=== PATIENT | male | born 1945 | race Caucasian/White ===

== ENCOUNTER 2018-08-23 15:58 | Emergency (ER) | payer MEDICARE, BC ==
[2018-08-23 16:07] VITALS: BP 160/101
[2018-08-23] MEDS ORDERED: Ibuprofen TAB* 600 MG PO ONE (16:45)
--- NOTE | 2018-08-23 16:56 | UC ---
Abdominal Pain Female HPI - HPI Summary HPI Summary: 73 yo M, no known pmh, c/o dull abdominal pain in the lower abdomen for 2 days. Began after eating at a restaurant. It's been constant since onset but waxes/ wanes w/o identifiable provoking or alleviating factors. It has not affected his eating or other daily activities. His bowel movements have been unchanged ( had large BM this morning). Denies fevers, vomiting, dysuria, penile discharge. Presents today b/c 4 friends were recently diagnosed w cancer and patient feels he should "be checked out." Had colonoscopy roughly 10 yr ago, last saw a PCP 8 yr ago. Denies testicular or scrotal pain - History of Current Complaint Chief Complaint: UCAbdominalPain Stated Complaint: ABDOMINAL PAIN Time Seen by Provider: 08/23/18 16:35 Hx Obtained From: Patient Onset/Duration: Gradual Onset Timing: Constant Severity Initially: Mild Severity Currently: Mild Pain Intensity: 3 Location: Other - across lower abdomen Radiates: No Character: Dull Aggravating Factor(s): Nothing Alleviating Factor(s): Nothing Associated Signs and Symptoms: Positive: Negative Allergies/Adverse Reactions: Allergies Allergy/AdvReac Type Severity Reaction Status Date / Time No Known Allergies Allergy Verified 08/23/18 16:07 PMH/Surg Hx/FS Hx/Imm Hx Previously Healthy: Yes - Surgical History Surgical History: Yes Surgery Procedure, Year, and Place: HEMMOROIEDTOMY 1991. APPENDECTOMY 2 YEARS OLD - Social History Alcohol Use: None Substance Use Type: None Smoking Status (MU): Never Smoked Tobacco Review of Systems Skin: Negative Respiratory: Negative Gastrointestinal: Abdominal Pain Musculoskeletal: Negative All Other Systems Reviewed And Are Negative: Yes Physical Exam Triage Information Reviewed: Yes Appearance: Well-Appearing, No Pain Distress, Thin Vital Signs: Initial Vital Signs Temp 98.2 F 08/23/18 16:03 Pulse 80 08/23/18 16:03 Resp 18 08/23/18 16:03 BP 160/101 08/23/18 16:03 Pulse Ox 100 08/23/18 16:03 Vital Signs Reviewed: Yes Eyes: Positive: Conjunctiva Clear Respiratory: Positive: Normal breath sounds Abdominal Exam: Normal Abdomen Description: Positive: Nontender, No Organomegaly, Soft. Negative: CVA Tenderness (R), CVA Tenderness (L), Distended, Guarding, McBurney's Point Tenderness, Peritoneal Signs Psychological Exam: Normal Skin Exam: Normal Abd Pain Female Course/Dx - Course Course Of Treatment: poc UA +for blood, no leuk or nitrites. patient states he' s had microscopic hematuria for years, never saw a Urologist. No dysuria or leuk /nitrites to suggest UTI. - Differential Dx/Diagnosis Differential Diagnosis: Other - mild enteritis, MSK pain, UTI Provider Diagnoses: abdominal pain Discharge - Sign-Out/Discharge Documenting (check all that apply): Patient Departure All imaging exams completed and their final reports reviewed: No Studies - Discharge Plan Condition: Stable Disposition: HOME Referrals: Marco Gudino MD [Primary Care Provider] - - Billing Disposition and Condition Condition: STABLE Disposition: Home
== END 2018-08-23 17:37 | disposition home or self-care (01) ==
LOC: UCEAST 15:58
DX: R10.30 Lower abdominal pain, unspecified (principal)
CPT/HCPCS: 81003; 99211; A9270-GY; G0463

== ENCOUNTER 2018-08-24 05:50 | Emergency (ER) | payer MEDICARE, BC ==
[2018-08-24] MEDS ORDERED: NS 0.9% 1000 ML* 1,000 ML IV ONE (06:01)
--- NOTE | 2018-08-24 06:23 | ED ---
Abdominal Pain/Male - HPI Summary HPI Summary: Patient is a 73-year-old male who presents emergency department for lower abdominal pain 4-5 days. Patient notes pain across the lower abdomen, more so on the left. Lying flat makes pain worse. Pain is constant but feels better if he is active. Pt. is unable to describe character of pain. He denies associated symptoms of fever, chills, chest pain, shortness of breath, nausea, vomiting, diarrhea constipation, blood in stools. Patient states pain occasionally radiates to his rectum and penis but otherwise denies testicular pain or swelling. Patient denies significant past medical history. He states that he has always had microscopic blood in his urine and was seen a urologist in the past. Takes a baby aspirin and fish oil daily. Sees PCP as needed. Symptoms are moderate in severity. Surgical history of hemorrhoidectomy. - History of Current Complaint Chief Complaint: EDAbdPain Stated Complaint: ABD PAIN Time Seen by Provider: 08/24/18 06:00 Hx Obtained From: Patient Pain Intensity: 5 - Allergies/Home Medications Allergies/Adverse Reactions: Allergies Allergy/AdvReac Type Severity Reaction Status Date / Time No Known Allergies Allergy Verified 08/24/18 05:54 PMH/Surg Hx/FS Hx/Imm Hx Previously Healthy: Yes GI History: Reports: Hx Gastroesophageal Reflux Disease - IN PAST CHANGED DIET, Other GI Disorders - POSSIBLE DIVERTICULITIS Denies: Hx Cirrhosis Sensory History: Reports: Hx Cataracts - PENDING SURGERY, Hx Contacts or Glasses - READERS Denies: Hx Hearing Aid Opthamlomology History: Reports: Hx Cataracts - PENDING SURGERY, Hx Contacts or Glasses - READERS - Surgical History Surgery Procedure, Year, and Place: HEMMOROIEDTOMY 1991. APPENDECTOMY 2 YEARS OLD Hx Anesthesia Reactions: No Infectious Disease History: No Infectious Disease History: Denies: Hx Hepatitis, Traveled Outside the [place] in Last 30 Days - Family History Known Family History: Positive: Cardiac Disease - Social History Occupation: Retired Lives: With Family Alcohol Use: None Substance Use Type: Reports: None Smoking Status (MU): Never Smoked Tobacco Review of Systems Constitutional: Negative Negative: Fever, Chills Eyes: Negative ENT: Negative Cardiovascular: Negative Negative: Chest Pain Respiratory: Negative Negative: Shortness Of Breath, Cough Positive: Abdominal Pain. Negative: Vomiting, Diarrhea, Nausea Genitourinary: Negative Positive: Arthralgia Neurological: Negative All Other Systems Reviewed And Are Negative: Yes Physical Exam Triage Information Reviewed: Yes Vital Signs On Initial Exam: Initial Vitals Temp Pulse Resp BP Pulse Ox 98.3 F 81 16 159/109 98 08/24/18 05:52 08/24/18 05:52 08/24/18 05:52 08/24/18 05:52 08/24/18 05:52 Vital Signs Reviewed: Yes Appearance: Positive: Well-Appearing - Patient sitting in bed in no acute distress. Pleasant. Skin: Positive: Warm, Dry Head/Face: Positive: Normal Head/Face Inspection Eyes: Positive: Normal, EOMI Neck: Positive: Supple Respiratory/Lung Sounds: Positive: Clear to Auscultation, Breath Sounds Present Cardiovascular: Positive: Normal, RRR Abdomen Description: Positive: Other: - Abdomen is soft with mild tenderness across the lower abdomen. No rebound tenderness or guarding.. Negative: CVA Tenderness (R), CVA Tenderness (L) Neurological: Positive: Normal, CN Intact II-III Diagnostics - Vital Signs Vital Signs Temp Pulse Resp BP Pulse Ox 08/24/18 05:52 98.3 F 81 16 159/109 98 - Laboratory Result Diagrams: 08/24/18 06:29 08/24/18 06:29 Lab Statement: Any lab studies that have been ordered have been reviewed, and results considered in the medical decision making process. Abdominal Pain Fem Course/Dx - Course Course Of Treatment: Patient presenting to the ER for lower abdominal pain times several days. He is afebrile. Blood pressure elevated. We'll obtain labs and CT scan for further evaluation. Pt. would like to hold off on pain medication at this time. Labs show mild elevation of creatine, bilirubin, CRP. U/A shows small RBCs without signs of infection. CT abd./pelvis per radiology: IMPRESSION: 1. THERE IS DIVERTICULOSIS WITH INFLAMMATORY CHANGE OF THE PERICOLONIC FAT AND MUCOSAL. THICKENING OF THE RECTUM. THE DIFFERENTIAL INCLUDES DIVERTICULITIS VERSUS INFECTIOUS OR. INFLAMMATORY COLITIS. THERE IS NO LOCULATED FLUID COLLECTION TO SUGGEST ABSCESS. 2. CHOLELITHIASIS. 3. FATTY INFILTRATION OF THE LIVER. 4. ENLARGED PROSTATE. 5. BLADDER DIVERTICULUM. 6. HIATAL HERNIA. 7. FAT-CONTAINING VENTRAL HERNIA. 8. THERE IS A CALCIFIED CYSTIC LESION OF THE MESENTERIC FAT ADJACENT TO THE TAIL OF THE. PANCREAS. THIS MAY REPRESENT A CALCIFIED PANCREATIC PSEUDOCYST OR A CALCIFIED MESENTERIC. CYST. THE IMAGING APPEARANCE SUGGESTS A NONAGGRESSIVE PROCESS. All CT findings were discussed with pt. including incidental findings. Given his sxs and hx suscpet diverticulitis based on CT results. Pt. states he would like to avoid a cipro as he is concerned with tendon damage. Will start on Augmentin per his request. Small rx for pain medications. RANCH HAND LIVESTOCK reviewed and no red flags noted. Pt. to f.u with his PCP. To return to ER for fever, increased pain, vomiting or if concerned. Pt. understands and agrees with plan. - Diagnoses Differential Diagnosis/HQI/PQRI: Bowel Obstruction, Constipation, Diverticulitis , Gall Bladder Disease, Hepatitis, Ischemic Bowel, Pancreatitis, Renal Colic, Urinary Tract Infection Provider Diagnoses: Diverticulitis Discharge - Sign-Out/Discharge Documenting (check all that apply): Patient Departure - Discharge Plan Condition: Good Disposition: HOME Prescriptions: Amoxicillin/Clavulanate TAB* [Augmentin TAB 875*] 875 mg PO BID #20 tab Hydrocodone/Acetaminophen [Hydrocodone-Acetamin 5-325 mg] 1 each PO Q6H #8 tablet MDD 4tablets Patient Education Materials: Diverticulitis (ED), Diverticulitis Diet (ED) Referrals: Marco Gudino MD [Primary Care Provider] - Additional Instructions: Schedule a follow up appointment with your PCP Medication as directed Clear liquid diet Recommend taking a stool softener with hydrocodone to prevent constipation Return to ER for increased pain, fever, vomiting or if concerned - Billing Disposition and Condition Condition: GOOD Disposition: Home
[2018-08-24 06:39] LABS: ABS Basophils 0 10^3/ul (0-0.2); ABS Eosinophils 0.1 10^3/ul (0-0.6); ABS Lymphocytes 1.2 10^3/ul (1.0-4.8); ABS Monocytes 0.7 10^3/ul (0-0.8); ABS Neutrophils 7.5 10^3/ul (1.5-7.7); ABS Nucleated RBC 0 10^3/ul; Eosinophil % 0.6 % (0-6); Hematocrit 40 % (42-52); Hemoglobin 14.1 g/dl (14.0-18.0); Lymphocyte % 12.7 % (25-47); Mean Corpuscular HGB Conc 35 g/dl (31-36); Mean Corpuscular Hemoglobin 33 pg (27-31); Mean Corpuscular Volume 93 fL (80-94); Mean Platelet Volume 8.3 um3 (7.4-10.4); Nucleated Red Blood Cells % 0.1; Platelet Count 198 10^3/ul (150-450); Red Blood Count 4.33 10^6/ul (4.00-5.40); Red Cell Distribution Width 13 % (10.5-15); White Blood Count 9.5 10^3/ul (3.5-10.8)
[2018-08-24 06:49] LABS: Urine Appearance Clear; Urine Blood 2+ (Negative); Urine Color Yellow; Urine Ketones Negative (Negative); Urine Protein Negative (Negative); Urine Red Blood Cell 2+(6-10/hpf) (Absent); Urine Specific Gravity 1.015 (1.010-1.030); Urine Urobilinogen Negative (Negative); Urine White Blood Cell Trace(0-5/hpf) (Absent)
[2018-08-24 06:59] LABS: EGFR Non-African American 56.5 (>60)
[2018-08-24] MEDS ORDERED: Iodixanol* (CONTRAST) 320 MG/ML 100 ML SDV IV ONE (07:39)
--- NOTE | 2018-08-24 09:15 | RAD ---
CLINICAL HISTORY: Lower abd. pain. L>R COMPARISON: None TECHNIQUE: Multiple contiguous axial CT scans were obtained of the abdomen and pelvis after the administration of intravenous contrast. Coronal and sagittal multiplanar reformations are submitted for review. Oral contrast was administered. Delayed images were obtained through the abdomen. FINDINGS: LUNG BASES: The lung bases are clear. LIVER: The liver is diffusely low in attenuation compared to the spleen. There are no focal hepatic parenchymal masses. BILE DUCTS: There is no intrahepatic or extrahepatic biliary dilatation. GALLBLADDER: Multiple gallstones are noted. There is no pericholecystic inflammatory change. PANCREAS: The pancreas is normal, without mass or ductal dilatation. SPLEEN: Normal in size and appearance. UPPER GI TRACT: Evaluation of the gastrointestinal tract is limited by incomplete gastric distention. There is a small sliding hilum hernia. SMALL BOWEL AND MESENTERY: There is a calcified cystic lesion of the mesenteric fat on the left anterior to the anterior pararenal fascia measuring approximately 2.6 cm in diameter. This may be related to the pancreatic tail. COLON: There are multiple diverticula of the sigmoid colon. There is stranding of the pericolic fat at the rectosigmoid junction. There is mucosal thickening of the rectum. ADRENALS: Normal bilaterally. KIDNEYS: The kidneys are normal in shape, size, contour, and axis. There is no hydronephrosis or nephrolithiasis. BLADDER: There is a 2.7 cm diverticulum of the posterior lateral bladder on the right. PELVIC ORGANS: The prostate is diffusely enlarged. The seminal vesicles are symmetric. AORTA: The aorta is normal. IVC: Unremarkable LYMPH NODES: There is no lymphadenopathy by size criteria. ABDOMINAL WALL: There is a fat-containing subxiphoid hernia. BONES AND SOFT TISSUES: Degenerative changes are noted. OTHER: None IMPRESSION: 1. THERE IS DIVERTICULOSIS WITH INFLAMMATORY CHANGE OF THE PERICOLONIC FAT AND MUCOSAL THICKENING OF THE RECTUM. THE DIFFERENTIAL INCLUDES DIVERTICULITIS VERSUS INFECTIOUS OR INFLAMMATORY COLITIS. THERE IS NO LOCULATED FLUID COLLECTION TO SUGGEST ABSCESS. 2. CHOLELITHIASIS. 3. FATTY INFILTRATION OF THE LIVER. 4. ENLARGED PROSTATE. 5. BLADDER DIVERTICULUM. 6. HIATAL HERNIA. 7. FAT-CONTAINING VENTRAL HERNIA. 8. THERE IS A CALCIFIED CYSTIC LESION OF THE MESENTERIC FAT ADJACENT TO THE TAIL OF THE PANCREAS. THIS MAY REPRESENT A CALCIFIED PANCREATIC PSEUDOCYST OR A CALCIFIED MESENTERIC CYST. THE IMAGING APPEARANCE SUGGESTS A NONAGGRESSIVE PROCESS.
[2018-08-24 09:28] VITALS: BP 168/98
== END 2018-08-24 09:47 | disposition home or self-care (01) ==
LOC: ED 05:50
DX: K57.92 Diverticulitis of intestine, part unspecified, without perforation or abscess without bleeding (principal); R10.9 Unspecified abdominal pain
CPT/HCPCS: 36415; 74177; 80053; 81003; 81015; 83605; 83690; 85025; 86140; 87086; 99282; Q9967

== ENCOUNTER → 2018-08-25 08:32 | Emergency (ER) | payer MEDICARE, BC ==
[~2018-08-25 08:32] MED LIST: NS 0.9% 1000 ML* 1,000 ML IV ONE
--- NOTE | 2018-08-25 08:45 | ED ---
Nausea/Vomiting/Diarrhea HPI - HPI Summary HPI Summary: Pt. is a 73 y.o male who presents to the ER for diarrhea x 1 day. Pt. was seen by myself yesterday in the ER for abd. pain and CT scan showed diverticulitis vs colitis. He was placed on augmentin and clear liquid diet. Pt. states that he has had 2 doses of antibx so far and that he now has diarrhea. States he has had about 2 BMs today. Denies dark or bloody stools. Pt. states he read the antibx labels and is concerned he may have c diff. Pt. states abd. pain has improved. He denies fever, chills, CP, SOB, N/V. No significant past medical hx. Symptoms are mild-moderate in severity. No current modifying factors. - History of Current Complaint Chief Complaint: EDGeneral Stated Complaint: SEVERE ABD PAIN Time Seen by Provider: 08/25/18 08:41 Hx Obtained From: Patient Pain Intensity: 0 - Allergies/Home Medications Allergies/Adverse Reactions: Allergies Allergy/AdvReac Type Severity Reaction Status Date / Time No Known Allergies Allergy Verified 08/25/18 08:46 PMH/Surg Hx/FS Hx/Imm Hx Previously Healthy: Yes GI History: Reports: Hx Gastroesophageal Reflux Disease - IN PAST CHANGED DIET, Other GI Disorders - POSSIBLE DIVERTICULITIS Denies: Hx Cirrhosis Sensory History: Reports: Hx Cataracts - PENDING SURGERY, Hx Contacts or Glasses - READERS Denies: Hx Hearing Aid Opthamlomology History: Reports: Hx Cataracts - PENDING SURGERY, Hx Contacts or Glasses - READERS - Surgical History Surgery Procedure, Year, and Place: HEMMOROIEDTOMY 1991. APPENDECTOMY 2 YEARS OLD Hx Anesthesia Reactions: No Infectious Disease History: No Infectious Disease History: Denies: Hx Hepatitis, Traveled Outside the [place] in Last 30 Days - Family History Known Family History: Positive: Cardiac Disease - Social History Occupation: Retired Lives: With Family Alcohol Use: None Substance Use Type: Reports: None Smoking Status (MU): Never Smoked Tobacco Review of Systems Constitutional: Negative Cardiovascular: Negative Respiratory: Negative Positive: Diarrhea Genitourinary: Negative Musculoskeletal: Negative Skin: Negative Neurological: Negative All Other Systems Reviewed And Are Negative: Yes Physical Exam Triage Information Reviewed: Yes Vital Signs On Initial Exam: Initial Vitals Temp Pulse Resp BP Pulse Ox 97.8 F 78 18 157/103 99 08/25/18 08:35 08/25/18 08:35 08/25/18 08:35 08/25/18 08:35 08/25/18 08:35 Vital Signs Reviewed: Yes Appearance: Positive: Well-Appearing - Pt. sitting up in bed in NAD> Anxious. Talkative. Skin: Positive: Warm, Dry Head/Face: Positive: Normal Head/Face Inspection Eyes: Positive: Normal, EOMI Neck: Positive: Supple Abdomen Description: Positive: Other: - Minimal discomfort over palpation of the suprapubic region without guarding or rebound tenderness. Neurological: Positive: Normal, CN Intact II-III Psychiatric: Positive: Anxious Diagnostics - Vital Signs Vital Signs Temp Pulse Resp BP Pulse Ox 08/25/18 08:35 97.8 F 78 18 157/103 99 - Laboratory Result Diagrams: 08/25/18 09:09 08/25/18 09:09 Lab Statement: Any lab studies that have been ordered have been reviewed, and results considered in the medical decision making process. Naus/Vom/Diarrhea Course/Dx - Course Course Of Treatment: Pt. presenting with complaints of diarrhea after taking two doses of augmentin for suspected diverticulitis. Pt. is febrile and well appearing. He has a benign abd. exam. Will recheck basic labs and c. diff. Labs shows normal WBC. Mildly increased cr and bilirubin from yesterday, will given a liter of NSS for dehydration. His H and H did slightly drop from yesterday, suspect from IV fluids yesterday. He is not having any bloody stools. C diff is negative. On re-exam pt. is resting comfortably. He is relieved c diff is negative. WIll dc home to continue antibx and clear liquid diet. To schedule pcp apt. for 2-3 days. Can take probiotic. To return to er if sxs change or worsen. Pt. understands and agrees with plan. - Differential Dx/Diagnosis Differential Diagnoses - Male: Enterocolitis, Gastroenteritis (Viral), Gastroenteritis (Bacterial), Diarrhea, Colitis Provider Diagnoses: diverticulitis Condition At Discharge: Good Discharge - Sign-Out/Discharge Documenting (check all that apply): Patient Departure - Discharge Plan Condition: Good Disposition: HOME Patient Education Materials: Diverticulitis (ED), Dehydration (ED) Referrals: Marco Gudino MD [Primary Care Provider] - Additional Instructions: Schedule a follow up appointment with PCP for tomorrow of Wednesday Continue clear liquid diet Continue augmentin as directed Increase fluids Take a probiotic Return to ER if symptoms change or worsen - Billing Disposition and Condition Condition: GOOD Disposition: Home
[2018-08-25 09:27] LABS: ABS Basophils 0 10^3/ul (0-0.2); ABS Eosinophils 0 10^3/ul (0-0.6); ABS Lymphocytes 0.8 10^3/ul (1.0-4.8); ABS Monocytes 0.4 10^3/ul (0-0.8); ABS Neutrophils 4.1 10^3/ul (1.5-7.7); ABS Nucleated RBC 0 10^3/ul; Eosinophil % 0.6 % (0-6); Hematocrit 35 % (42-52); Hemoglobin 12.3 g/dl (14.0-18.0); Lymphocyte % 15.3 % (25-47); Mean Corpuscular HGB Conc 35 g/dl (31-36); Mean Corpuscular Hemoglobin 33 pg (27-31); Mean Corpuscular Volume 93 fL (80-94); Nucleated Red Blood Cells % 0.1; Platelet Count 174 10^3/ul (150-450); Red Blood Count 3.76 10^6/ul (4.00-5.40); Red Cell Distribution Width 14 % (10.5-15); White Blood Count 5.4 10^3/ul (3.5-10.8)
[2018-08-25 09:45] LABS: EGFR Non-African American 52.6 (>60)
[2018-08-25 13:25] VITALS: BP 155/85
== END | disposition home or self-care (01) ==
LOC: ED 08:32
DX: K57.92 Diverticulitis of intestine, part unspecified, without perforation or abscess without bleeding (principal)
CPT/HCPCS: 36415; 80053; 83735; 85025; 87493; 96360; 99282

== ENCOUNTER → 2018-10-02 15:38 | Emergency (ER) | payer MEDICARE, BC | END | disposition home or self-care (01) | LOC: ED 15:38 | DX: R10.9 Unspecified abdominal pain (principal); Z53.21 Procedure and treatment not carried out due to patient leaving prior to being seen by health care provider ==

== ENCOUNTER 2024-03-20 16:57 | Observation (INO) ==
[2024-03-20 19:21] LABS: ABS Eosinophils 0.1 10^3/uL (0.0-0.5); ABS Lymphocytes 0.9 10^3/uL (1.0-4.8); ABS Monocytes 0.5 10^3/uL (0.0-1.1); ABS Neutrophils 5.4 10^3/uL (1.5-7.6); Eosinophil % 1.1 %; Hematocrit 35.2 % (38-53); Hemoglobin 12.3 g/dL (13.2-16.3); Lymphocyte % 12.7 %; Mean Corpuscular Hemoglobin 31.9 pg (27-33); Mean Corpuscular Volume 91.1 fL (80-97); Mean Platelet Volume 7.7 fL (7.5-11.2); Platelet Count 261 10^3/uL (150-450); Red Blood Count 3.86 10^6/uL (4.06-5.63); Red Cell Distribution Width 13.1 % (12-17); White Blood Count 6.9 10^3/uL (3.6-10.2)
[2024-03-20] MEDS: Lidocaine PATCH 5% PATCH TRANSDERM ONE (19:26)
[2024-03-20 19:31] LABS: Urine Appearance Clear; Urine Bilirubin Negative (Negative); Urine Blood 2+ (Negative); Urine Color Light-Yellow; Urine Glucose Negative (Negative); Urine Ketones Negative (Negative); Urine Nitrite Negative (Negative); Urine Protein 1+ (>=30 mg/dL) (Negative); Urine Specific Gravity 1.011 (1.002-1.030); Urine Urobilinogen Negative (Negative); Urine pH 5.5 (5.0-8.0)
[2024-03-20 19:33] LABS: INR 1.08 (0.83-1.13)
[2024-03-20 19:45] LABS: Albumin 3.7 g/dL (3.2-5.2); Albumin/Globulin Ratio 1.3 (1-3); C Reactive Protein 16.66 mg/L (<8.01); Calcium 8.5 mg/dL (8.6-10.3); Creatinine, Serum 1.46 mg/dL (0.67-1.17); Globulin 2.8 g/dL (2-4); Potassium 4.4 mmol/L (3.5-5.0); Total Bilirubin 0.6 mg/dL (0.2-1.0); Total Protein 6.5 g/dL (6.4-8.9); eGFR CKD-EPI 48.6 (>60)
[2024-03-20 20:08] LABS: Urine Bacteria 1+ /HPF (Absent); Urine Red Blood Cell 1+(3-5/hpf) /HPF (0-Trace); Urine White Blood Cell 3+(>20/hpf) /HPF (0-Trace)
[2024-03-20] MEDS: Morphine 4 MG/ML VIAL (1 ml) IV ONE (20:11)
[2024-03-20] MEDS: HYDROmorphone 1 MG/1 ML SYRINGE IV ONE ×2 (22:33→23:18)
[2024-03-20] MEDS: Dexamethasone IV 4 MG/ML VIAL 1 ml VIAL IV SLOW PU ONE (23:21)
[2024-03-20] MEDS: cefTRIAXone 2 gm/50 mL D5W 2 GM/50 ML BAG IV ONE (23:24)
[2024-03-21] MEDS ORDERED: Polyethylene Glycol 3350 17 GM PACKET PO PRN (01:00)
[2024-03-21] MEDS ORDERED: Senna TAB 8.6 mg TAB PO PRN (01:00)
[2024-03-21] MEDS ORDERED: Ondansetron 4 mg VIAL 2 MG/ML 2 ml VIAL IV PRN (01:00)
[2024-03-21] MEDS ORDERED: HYDROmorphone 1 MG/1 ML SYRINGE IV SLOW PU PRN (01:11)
[2024-03-21] MEDS: Enoxaparin 40 MG/0.4 ML SYR SUBCUT SCH (06:41)
[2024-03-21] MEDS: Acetaminophen IV 1 GM/100ML 1,000 MG/100 ML BAG IV SCH (06:42)
[2024-03-21] MEDS: Gadoteridol (CONTRAST) 279.3 MG/ML 10 ML IV ONE (22:47)
[2024-03-21] MEDS: cefTRIAXone 1 gm/50 mL D5W 1 GM/50 ML BAG IV SCH (23:22)
[2024-03-22 05:51] LABS: Calcium 8.9 mg/dL (8.6-10.3); Creatinine, Serum 1.53 mg/dL (0.67-1.17); Potassium 4.8 mmol/L (3.5-5.0)
[2024-03-22 14:10] VITALS: BP 158/98
== END 2024-03-22 17:00 | disposition home or self-care (01) ==
LOC: ED 16:57 → EDHOLD 16:57 → SUATTDRO 03-21 01:00 → MED 03-21 02:04
PROVIDERS: ADMIT Internal Medicine; ATTEND Hospitalist